=== PATIENT | male | born 1945 | race Caucasian/White ===

== ENCOUNTER 2024-12-29 11:39 | Day surgery (SDC) | payer OTHER, SELFPAY ==
[2024-12-29] VITALS (14 sets, daily range): BP systolic 91–172; BP diastolic 63–82; BMI 25.1
[2024-12-29 13:13] LABS: Glucose - Point of Care 127 mg/dl (70-99)
[2024-12-29 14:16] LABS: ACT-LR - POC 273 Seconds (116-155)
[2024-12-29 14:51] LABS: ACT-LR - POC 273 Seconds (116-155)
[2024-12-29 17:41] LABS: Glucose - Point of Care 149 mg/dl (70-99)
--- NOTE | 2024-12-29 18:06 | PTCARENOTE ---
Assumed care of patient from Suzanne Morales RN. R radial CDI. Band in place. BP stable. O2 84-89% RA. Patient is not in distress and is resting comfortably. 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 Patient has extensive pulmonary history and presented to laboratory mechanical technician for procedure with
o2 sats in the mid 80's.
--- NOTE | 2024-12-29 19:04 | ITS.CL.PN ---
[facility] - Procedure Note
Procedure
Procedure Note:
CARDIAC CATHETERIZATION REPORT
Date of Procedure: 12/29/2024
Referring: Dr. Genaro Sanchez MD
Indication: chest pain, coronary CT angiogram with severe multivessel disease
PROCEDURE(S)
1. left heart catheterization
2. coronary angiography
3. IVUS LCx and left main
4. IVUS LAD and left main
5. iFR left main
6. iFR LAD
7. PCI with JUMA to LAD
ACCESS: 6F right radial artery (closure: radial band)
CATHETERS
1. 6F JR4
2. 6F JL3.5
3. 6F EBU
MODERATE SEDATION: 60 minutes of moderate sedation was utilized. An independent biomedical engineering supervisor was present to assist with and help manage the patient's level of consciousness and physiologic status.
HEMODYNAMIC DATA
LV 154/9 (EDP 15) mmHg
AO 151/66 (mean 102) mmHg
CORONARY ANGIOGRAPHY
Dominance: Right
LM: Short vessel with what appears to be a moderate stenosis at the ostium with mild pressure dampening noted on catheter engagement.
LAD: Large vessel giving rise to a moderate caliber diagonal branch and wrapping around the apex. There is a focal 80% stenosis spanning the takeoff of the diagonal branch. The proximal aspect of the diagonal branch has a smooth 50% stenosis. The
remainder the vessel has mild disease.
LCx: Large vessel giving rise to a large high rising OM1 and large OM2. There is mild nonobstructive disease only. The vessel supplies collaterals to the large RCA system.
RCA: Large vessel with a 100% occlusion in the mid aspect. There are brisk [id number] collaterals from the circumflex filling the RPDA and RPL branches.
IVUS of left circumflex back to left main
Runthrough wire was placed in the left circumflex. An RFI [employer] IVUS catheter was advanced to the left main and ringdown performed. The catheter was advanced to the proximal circumflex and pullback performed. There was noted to be soft plaque in the
ostial left main however given limitations of catheter resolution MLA could not be accurately measured. The decision was made to attempt IVUS from the LAD back in hopes that a different catheter orientation would improve image quality.
IVUS of LAD back to the left main
The Runthrough wire was redirected to the LAD. The catheter was readvanced to the proximal LAD and pullback performed. Again, there was noted to be soft plaque in the ostial left main however again catheter resolution did not allow for accurate
assessment of MLA.
iFR of proximal left circumflex back to left main
An Omni wire was advanced to the the left circumflex, the guide disengaged, and the pressure transducer carefully positioned just outside the left main ostium. The wire introducer was removed and the catheter flushed with saline, after which
pressure of the wire and guide were normalized. The wire was advanced to the proximal circumflex and iFR recorded at 0.96. iFR pullback was performed noting a focal pattern at the ostial left main. On return to a position proximal to the ostial left
main, iFR appropriately normalized to ~1.0, confirming lack of wire drift.
iFR of mid LAD back to left main
The Omni wire was returned to a position just proximal to the ostial left main this time directed towards the LAD and again the guide was disengaged and the pressure transducer carefully positioned just outside the left main ostium. The pressure of
the wire and guide were again normalized. The wire was advanced to the mid LAD beyond the mid LAD lesion and iFR recorded at 0.80. iFR pullback was performed noting a focal pattern with the majority of the contribution from the mid LAD with iFR
returning to 0.96 distal to the ostial left main. On return to a position in the aorta proximal to the ostial left main, iFR appropriately normalized to ~1.0, confirming lack of wire drift.
IVUS-guided PCI with JUMA to LAD
In the setting of angiographically equivocal and IVUS equivocal moderate left main disease that was definitively negative by iFR, the decision was made to proceed with PCI of the mid LAD lesion that was definitively iFR positive and thus the most
likely culprit for the patient's symptoms. A Runthrough wire was placed in the LAD and a second Runthrough protection wire in the diagonal branch. Initial lesion preparation was performed with a 2.0 mm balloon with adequate lesion expansion noted.
The lesion was stented with a 3.0 x 22 mm [place] drug-eluting stent followed by removal of the jailed diagonal wire and rewiring through stent struts. Post dilation was performed with a 3.0 mm NC balloon distally and a 3.25 mm NC balloon
proximally to high-pressure based on IVUS guided vessel sizing. Final IVUS demonstrated excellent stent sizing, expansion, and apposition with no edge dissections. Angiographic result was excellent with DIANE-3 flow in the jailed diagonal sidebranch.
The wires and guide were removed and a TR band placed. The patient was loaded with 600 mg Plavix.
RADIATION: dose 1303 mGy; DAP 92 Gy*cm2; fluoroscopy time 22 min
CONCLUSIONS
1. Coronary artery disease as described with RCA VP [employer], severe stenosis of the mid LAD, and angiographically equivocal ostial LAD disease further interrogated with IVUS and iFR as described and determined to be nonsignificant.
2. Successful IVUS guided PCI to the mid LAD with placement of a 3.0 x 22 mm [place] drug-eluting stent postdilated with a 3.0 mm NC balloon distally and 3.25 mm NC balloon proximally.
3. Mildly elevated LV filling pressure and no aortic stenosis on hemodynamic pullback.
RECOMMENDATIONS
1. Aggressive secondary prevention of coronary artery disease
2. DAPT with aspirin and Plavix for at least 6 months
3. Should patient have continued anginal symptoms in the future, recommend re-interrogation of left main with high resolution IVUS.
Copy to: Dr. Genaro Sanchez MD (civil engineering design draftsperson); Dr. Marlen Ward MD (PCP)
Signed: Isidro Norwood MD, PhD
== END 2024-12-29 19:32 | disposition home or self-care (01) ==
LOC: CATH 11:39
PROVIDERS: ATTENDING PHYSICIAN Student in an Organized Health Care Education/Training Program; FAMILY PHYSICIAN Internal Medicine; OTHER PHYSICIAN Internal Medicine Cardiovascular Disease
DX: I25.10 Atherosclerotic heart disease of native coronary artery without angina pectoris (principal); I25.82 Chronic total occlusion of coronary artery; I10 Essential (primary) hypertension; E78.5 Hyperlipidemia, unspecified; E11.9 Type 2 diabetes mellitus without complications; Z79.84 Long term (current) use of oral hypoglycemic drugs; Z79.82 Long term (current) use of aspirin; Z79.02 Long term (current) use of antithrombotics/antiplatelets; Z79.899 Other long term (current) drug therapy
CPT/HCPCS: 92978; 92979; 93799 ×2; 99152; 99153; 82962; 85347; 93005; 93460; C1725; C1753; C1769; C1874; C1894; C9600; Q9967